=== PATIENT | male | born 1950 | race Caucasian/White ===

== ENCOUNTER 2019-09-08 14:16 | Emergency (ER) | payer MEDICARE, MEDICAID ==
[~2019-09-08 14:16] MED LIST: AVELOX400 MG OR; MEDDOSEPAK OR; NAPROSYN500 MG OR
[2019-09-08 15:00] LABS: GFR > 60 ML/MIN (>=60 (CALC)); GFR FOR AFR.AMER. > 60 ML/MIN (>=60 (CALC))
[2019-09-08 15:03] LABS: HEMATOCRIT 32.3 % (39.0-50.0); IMMATURE GRANULOCYTES 0.4 % (0.0-5.0); MEAN CORPUSCULAR HGB 25.6 pG CALC (26.0-32.0); MEAN CORPUSCULAR HGB CONC 30.7 g/dL CAL (32.0-36.0); NEUT# 6.54 thou/uL (1.82-7.42); RED BLOOD COUNT 3.87 mill/uL (4.70-6.10); RED CELL DISTRI WIDTH 18.1 % (11.5-15.5)
[2019-09-08 15:04] LABS: HEMOGLOBIN 9.9 g/dl (14.0-18.0); MEAN CELL VOLUME 83.5 fL CALC (80.0-100.0)
[2019-09-08 15:23] LABS: ANION GAP 12 (6-22 (CALC)); BUN 9 mg/dL (8-23); BUN/CREATININE RATIO 13 (12-20 (CALC)); CARBON DIOXIDE 26 mmol/l (22-30); CHLORIDE 96 mmol/l (95-108); CREATININE 0.7 mg/dL (0.7-1.3); GFR > 60 ML/MIN (>=60 (CALC)); GFR FOR AFR.AMER. > 60 ML/MIN (>=60 (CALC)); POTASSIUM 4.3 mmol/l (3.5-5.1)
[2019-09-08 15:24] LABS: SODIUM 130 mmol/l (137-146)
[2019-09-08] MEDS ORDERED: ZPAK PO (17:11)
[2019-09-08] MEDS ORDERED: AMOX/K CLAV875 M1 PO (17:11)
[2019-09-08] MEDS ORDERED: GABAPENTIN100 MG PO (17:11)
[2019-09-08 18:34] VITALS: BP 115/70
== END 2019-09-08 18:34 | disposition home or self-care (01) ==
LOC: ED 14:16
PROVIDERS: Family Medicine
DX: I70.223 Atherosclerosis of native arteries of extremities with rest pain, bilateral legs (principal); J18.9 Pneumonia, unspecified organism; F17.210 Nicotine dependence, cigarettes, uncomplicated; Z20.828 Contact with and (suspected) exposure to other viral communicable diseases
CPT/HCPCS: Q9967